=== PATIENT | female | born 1955 | race African-American/Black ===

== ENCOUNTER 2019-06-05 08:19 | Outpatient (CLI) | payer OTHER ==
[2013-09-26 06:36] VITALS: BMI 25.6
[~2019-06-05 08:19] MED LIST: HYDROCHLOROTH12.5 M1 PO; NORCO 10/325 TA1 TA1 PO; PREMARIN0.9 MG PO
== END 2019-06-05 23:59 | disposition home or self-care (01) ==
LOC: D.MAMMO 08:19
PROVIDERS: ATTEND Student in an Organized Health Care Education/Training Program
DX: Z12.31 Encounter for screening mammogram for malignant neoplasm of breast (principal)

== ENCOUNTER 2019-07-23 09:00 | Outpatient (CLI) | payer OTHER ==
[2013-09-26 06:36] VITALS: BMI 25.6
== END 2019-07-23 10:00 | disposition home or self-care (01) ==
LOC: D.MAMMO 09:00
PROVIDERS: ATTEND Student in an Organized Health Care Education/Training Program
DX: R92.8 Other abnormal and inconclusive findings on diagnostic imaging of breast (principal)